=== PATIENT | female | born 1980 ===

== ENCOUNTER 2021-08-12 09:00 | Outpatient (CLI) | payer OTHER | END 2021-08-12 09:12 | disposition home or self-care (01) | LOC: LAB 09:00 | PROVIDERS: ATTEND Obstetrics & Gynecology | DX: N91.1 Secondary amenorrhea (principal); Z03.818 Encounter for observation for suspected exposure to other biological agents ruled out; Z20.828 Contact with and (suspected) exposure to other viral communicable diseases ==

== ENCOUNTER 2021-08-14 07:01 | Day surgery (SDC) | payer OTHER ==
[2021-08-14] MEDS ORDERED: MORGIDOX100 MG PO (13:45)
[2021-08-14] MEDS ORDERED: NAPR500T14 PO (13:45)
== END 2021-08-14 20:50 | disposition home or self-care (01) ==
LOC: CIR.AMB 07:01
PROVIDERS: ATTEND Obstetrics & Gynecology
DX: D25.0 Submucous leiomyoma of uterus (principal); N84.0 Polyp of corpus uteri; Z20.822 Contact with and (suspected) exposure to COVID-19

== ENCOUNTER 2025-01-11 08:41 | Day surgery (SDC) | payer OTHER ==
[2025-01-09 14:07] LABS: BASO % 0.4 % (0.1-1.2); EOS % 1.1 % (0.7-7.0); HEMATOCRIT 35.9 % (34.1-44.9); HEMOGLOBIN 12.2 g/dL (11.2-15.7); LYMPH # 1.76 (1.18-3.74); LYMPH % 19.2 % (19.3-53.1); MONO # 0.72 (0.24-0.82); MONO % 7.8 % (4.7-12.5); NEUT # 6.54 (1.56-6.13); NEUT % 71.2 % (34.0-71.1); PLATELET COUNT 229 K/uL (163-369); RED CELL DISTRIBUTION WIDTH 14.2 % (11.6-14.4)
[2025-01-09 14:07] LABS: PH,URINE 5.5 (5.0-8.0); URINE APPEARANCE Cloudy; URINE BILIRRUBIN Negative (NEGATIVE); URINE BLOOD Moderate; URINE COLOR Yellow; URINE GLUCOSE Negative (NEGATIVE); URINE KETONE Negative (NEGATIVE); URINE LEUKOCYTE Trace; URINE NITRATE Negative; URINE PROTEIN Negative (NEGATIVE); URINE UROBILINOGEN 0.2 E.U./dl
[2025-01-09 14:10] LABS: URINE BACTERIA 1925.2 uL (0.0-1933); URINE EPITHELIAL CELLS 137.5 uL (0.0-38.8); URINE RBC 20.7 uL (0.0-20.8); URINE WBC 26.1 uL (0.0-23.2)
[2025-01-09 14:22] LABS: URINE CAST 0.44 uL (0.0-1.40)
[2025-01-09 14:40] LABS: INR 0.98; PARTIAL THROMBOPLASTIN TIME 25.9 SECONDS (22.0-34.0); PROTHROMBIN TIME 10.7 SECONDS (9.0-11.5)
[2025-01-09 14:42] VITALS: BP 109/73
[2025-01-09 14:54] LABS: ALBUMIN 3.4 gm/dL (3.4-5.0); BILIRUBIN TOTAL 0.39 mg/dL (0.3-1.2); CALCIUM 8.9 mg/dL (8.5-10.1); CREATININE SERUM 0.54 mg/dL (0.55-1.02); GFR 123.81; GLOBULINA 3.2 G/DL (2.4-3.5); POTASSIUM 3.78 mEq/L (3.5-5.1); TOTAL PROTEIN 6.6 gm/dL (6.4-8.2); TSH 0.966 uIU/mL (0.358-3.74)
[~2025-01-11] VITALS: Ht 157.5 cm; Wt 79.8 kg
[~2025-01-11 08:41] MED LIST: MORGIDOX100 MG PO; NAPR500T14 PO
[2025-01-11] MEDS ORDERED: CEFOXITIN SODIUM 2,000 MG VIAL IV ONE (10:41)
[2025-01-11] MEDS ORDERED: POVIDONE-IODINE 118 ML BOTT TOP ONE (13:51)
[2025-01-11] MEDS ORDERED: IBU600 MG PO (14:26)
[2025-01-11] MEDS ORDERED: DOXYCYCLINE HY100 M2 PO (14:26)
[2025-01-11 19:14] LABS: RH POSITIVE
== END 2025-01-11 20:45 | disposition home or self-care (01) ==
LOC: CIR.AMB 08:41
PROVIDERS: Obstetrics & Gynecology; ATTEND Obstetrics & Gynecology
DX: O02.1 Missed abortion (principal)